=== PATIENT | female | born 1970 | race Two or more races ===

== ENCOUNTER 2016-12-17 23:52 | Emergency (ER) | payer MEDICAID ==
[~2016-12-17] VITALS: Ht 149.9 cm; Wt 65.3 kg
[2016-12-18 00:50] LABS: Basophils # (auto) 0 uL; Eosinophils # (auto) 0 uL; Eosinophils % (auto) 0.1 % (0.0-7.0); Hematocrit 36.8 % (36.0-46.0); Hemoglobin 12.6 g/dL (12.2-16.2); Lymphocytes # (auto) 1.2 uL; Lymphocytes % (auto) 8.2 % (10.0-50.0); Mean Corpuscular Hemoglobin 31.6 pg (28.0-32.0); Mean Corpuscular Hgb Conc. 34.3 g/dL (32.0-36.0); Mean Platelet Volume 7.8 fL (7.4-10.4); Monocytes # (auto) 0.8 uL; Monocytes % (auto) 5.4 % (0.0-12.0); Neutrophils # (auto) 12.6 uL; Neutrophils % (auto) 86.3 % (37.0-80.0); Platelet Count (auto) 317 10^3/uL (140-450); Red Cell Distribution Width 13.6 % (11.6-16.0); White Blood Cell 14.6 10^3/uL (4.4-10.8)
[2016-12-18 01:07] LABS: INR 0.95 (0.9-1.15); Partial Thromboplastin Time 28.2 sec (22.64-33.71); Prothrombin Time 10.3 sec (9.37-12.3)
[2016-12-18 01:16] LABS: Albumin 3.9 g/dL (3.4-5.0); Anion Gap 12 (5-15); Blood Urea Nitrogen 11 mg/dL (7-18); Calcium 8.5 mg/dL (8.5-10.1); Carbon Dioxide 24 mmol/L (21-32); Chloride 105 mmol/L (98-107); Glucose 125 mg/dL (74-106); Magnesium 2.1 mg/dL (1.6-2.6); Potassium 3.3 mmol/L (3.5-5.1); Sodium 141 mmol/L (136-145)
[2016-12-18 01:18] LABS: BUN/Creatinine Ratio 15.5; GFR African American 114 mL/min; GFR Non-African American 95 mL/min
[2016-12-18 02:04] LABS: Alkaline Phosphatase 69 U/L (45-117); Aspartate Aminotransferase 12 U/L (15-37); Bilirubin, Total 0.4 mg/dL (0.2-1.0); Total Protein 8.2 g/dL (6.4-8.2)
[2016-12-18 06:39] VITALS: BP 149/95
== END 2016-12-18 07:15 | disposition home or self-care (01) ==
LOC: ER 23:52
DX: K04.7 Periapical abscess without sinus (principal); N39.0 Urinary tract infection, site not specified; I10 Essential (primary) hypertension
CPT/HCPCS: 36415; 71010; 80053; 81002; 83605; 83735; 84484; 85025; 85610; 85730; 87040; 93005

== ENCOUNTER 2023-06-01 23:19 | Inpatient (IN) | payer MEDICAID ==
[~2023-06-01] VITALS: Ht 162.6 cm; Wt 76.4 kg
[2023-06-01 23:53] LABS: Basophils # (auto) 0.1 10 ^3/uL (0-0.2); Basophils % (auto) 0.8 % (0.0-2.0); Eosinophils # (auto) 0.1 10 ^3/uL (0-0.8); Eosinophils % (auto) 1.8 % (0.0-7.0); Hematocrit 37.2 % (36.0-46.0); Hemoglobin 12.7 g/dL (12.2-16.2); Lymphocytes # (auto) 2.9 10 ^3/uL (0.4-5.4); Mean Corpuscular Hemoglobin 31.4 pg (28.0-32.0); Mean Corpuscular Volume 92.1 fL (80.0-100.0); Monocytes # (auto) 0.7 10 ^3/uL (0-1.3); Monocytes % (auto) 8.8 % (0.0-12.0); Neutrophils # (auto) 3.8 10 ^3/uL (1.6-8.6); Neutrophils % (auto) 50.6 % (37.0-80.0); Red Blood Cells 4.03 10^6/uL (4.0-5.20); Red Cell Distribution Width 12.7 % (11.8-14.3); White Blood Cell 7.5 10^3/uL (4.4-10.8)
[2023-06-02 00:12] LABS: INR 0.98 (0.9-1.15); Partial Thromboplastin Time 27.2 SEC (24.5-34.5); Prothrombin Time 10.3 sec (9.3-11.8)
[2023-06-02 00:15] LABS: Alanine Aminotransferase 38 U/L (7-40); Alkaline Phosphatase 78 U/L (46-116); Anion Gap 9 (5-15); Aspartate Aminotransferase 24 U/L (13-40); BUN/Creatinine Ratio 12.4 (10.0-20.0); Bilirubin, Total 0.3 mg/dL (0.2-1.0); Blood Urea Nitrogen 11 mg/dL (9-23); Calcium 10.1 mg/dL (8.7-10.4); Carbon Dioxide 24 mmol/L (20-30); Chloride 107 mmol/L (98-107); Glucose 130 mg/dL (74-106); Potassium 3.2 mmol/L (3.5-5.1); Sodium 140 mmol/L (136-145); Total Protein 7.9 g/dL (5.7-8.2)
[2023-06-02] MEDS ORDERED: ALBUTEROL MEDNEB 2.5 mg/3ml NEB NEB ONE (02:15)
[2023-06-02] MEDS ORDERED: DexAMETHasone SOD PHOS 10MG/1ML VIAL INJ IV ONE (02:15)
[2023-06-02] MEDS ORDERED: LORazepam 2MG/ML-1ML VIAL IV ONE (02:15)
[2023-06-02 03:09] VITALS: PULSE 99; RESP 14; O2SAT 96
[2023-06-02] MEDS ORDERED: IOHEXOL 350 MG/ML 100ML IJ ONE (04:17)
[2023-06-02] MEDS ORDERED: POTASSIUM CHL 20 Meq TABLET PO ONE ×2 (09:15)
[2023-06-02] MEDS ORDERED: ONDANSETRON HCL 4 MG/2 ML VIAL IV PRN (09:45)
[2023-06-02] MEDS: ENOXAPARIN SOD 40 MG/0.4 ML SYRINGE SC SCH (10:07)
[2023-06-02 10:29] LABS: Triglycerides 96 mg/dL (< 150)
[2023-06-02 10:30] LABS: LDL Cholesterol 97 mg/dL (< 100)
[2023-06-02 10:31] LABS: Cholesterol 161 mg/dL (< 200); HDL Cholesterol 53 mg/dL (40-59)
[2023-06-02 16:59] LABS: Urine Bacteria NONE SEEN /hpf (None Seen); Urine Blood 2+ /uL (Negative); Urine Clarity HAZY (Clear); Urine Color Yellow (Yellow); Urine Protein, UAD TRACE (Negative); Urine Specific Gravity 1.025 (1.001-1.035); Urine Urobilinogen Normal (Negative); Urine WBC 81 /hpf (0 - 5)
[2023-06-02 17:14] LABS: Amphetamine Screen, Urine Neg (NEGATIVE); Barbiturate Scree,Urine Neg (NEGATIVE); Benzodiazephine Screen, Urine Neg (NEGATIVE); Cocaine Screen, Urine Neg (NEGATIVE)
[2023-06-02 17:15] LABS: Cannabinoid Screen, Urine Neg (NEGATIVE); Opiate Scree,Urine Pos (NEGATIVE); Phencyclidine Screen, Urine Neg (NEGATIVE)
[2023-06-02] MEDS: cefTRIAXone 1GM/50ML D5W 50 ML IV SCH (19:14)
[2023-06-02] MEDS: ACETAMINOPHEN 325 MG TAB PO PRN (20:13)
[2023-06-02] MEDS ORDERED: ATORVASTATIN 20 MG TAB PO SCH (22:00)
[2023-06-02] MEDS ORDERED: LEVO75TA6 PO (23:08)
[2023-06-02] MEDS ORDERED: ATO40T PO (23:08)
[2023-06-03 05:00] VITALS: BP 98/60; PULSE 98; RESP 20; TEMP 98.1; O2SAT 94
[2023-06-03 07:10] LABS: Basophils # (auto) 0 10 ^3/uL (0-0.2); Basophils % (auto) 0.3 % (0.0-2.0); Eosinophils # (auto) 0 10 ^3/uL (0-0.8); Eosinophils % (auto) 0.3 % (0.0-7.0); Hematocrit 35.6 % (36.0-46.0); Hemoglobin 11.8 g/dL (12.2-16.2); Lymphocytes # (auto) 2.1 10 ^3/uL (0.4-5.4); Lymphocytes % (auto) 19.4 % (10.0-50.0); Mean Corpuscular Hemoglobin 31.2 pg (28.0-32.0); Mean Corpuscular Hgb Conc. 33.2 g/dL (32.0-36.0); Mean Corpuscular Volume 94.2 fL (80.0-100.0); Monocytes # (auto) 1.1 10 ^3/uL (0-1.3); Monocytes % (auto) 10.3 % (0.0-12.0); Neutrophils # (auto) 7.5 10 ^3/uL (1.6-8.6); Neutrophils % (auto) 69.7 % (37.0-80.0); Nucleated Red Blood Cells % 0.1 %; Red Blood Cells 3.78 10^6/uL (4.0-5.20); Red Cell Distribution Width 13.6 % (11.8-14.3); White Blood Cell 10.7 10^3/uL (4.4-10.8)
[2023-06-03 07:30] LABS: Anion Gap 8 (5-15); Carbon Dioxide 24 mmol/L (20-30); Chloride 110 mmol/L (98-107); Potassium 3.9 mmol/L (3.5-5.1); Sodium 142 mmol/L (136-145)
[2023-06-03 07:31] LABS: Calcium 9.2 mg/dL (8.7-10.4)
[2023-06-03 07:36] LABS: BUN/Creatinine Ratio 22.2 (10.0-20.0); Blood Urea Nitrogen 18 mg/dL (9-23); Glucose 112 mg/dL (74-106)
[2023-06-03] MEDS: ENOXAPARIN SOD 40 MG/0.4 ML SYRINGE SC SCH (08:41)
[2023-06-03] MEDS: cefTRIAXone 1GM/50ML D5W 50 ML IV SCH (08:42)
[2023-06-03 09:11] VITALS: BP 107/61; PULSE 65; RESP 20; TEMP 98.2; O2SAT 94
[2023-06-03] MEDS ORDERED: ASPirin 81 mg TAB PO SCH (10:00)
[2023-06-03] MEDS: ACETAMINOPHEN 325 MG TAB PO PRN (12:00)
[2023-06-03 12:42] VITALS: BP 112/63; PULSE 77; RESP 20; TEMP 98.3; O2SAT 93
[2023-06-03 16:39] VITALS: BP 116/70; PULSE 91; RESP 20; TEMP 99.5; O2SAT 97
[2023-06-03] MEDS ORDERED: CEPH250C PO (17:54)
[2023-06-04 08:41] LABS: Hepatitis B Surface Antigen Negative (Negative)
[2023-06-04 09:03] LABS: Hepatitis C Antibody Negative (Negative)
== END 2023-06-03 18:41 | disposition home or self-care (01) | DRG 133 ==
LOC: ER 23:19 → EDBD 23:19 → OVERFLOW 06-02 09:35 → WEST WING 06-02 22:00
PROVIDERS: ADMIT Internal Medicine
DX: J96.00 Acute respiratory failure, unspecified whether with hypoxia or hypercapnia (principal); E03.9 Hypothyroidism, unspecified; E66.9 Obesity, unspecified; Z68.28 Body mass index [BMI] 28.0-28.9, adult; E78.5 Hyperlipidemia, unspecified; E87.6 Hypokalemia; R73.03 Prediabetes; N39.0 Urinary tract infection, site not specified; H54.7 Unspecified visual loss; I10 Essential (primary) hypertension; J98.01 Acute bronchospasm; Z86.73 Personal history of transient ischemic attack (TIA), and cerebral infarction without residual deficits; Z82.49 Family history of ischemic heart disease and other diseases of the circulatory system; Z80.8 Family history of malignant neoplasm of other organs or systems
CPT/HCPCS: 36415; 71045; 71275; 78452; 78582; 80048; 80053; 80061; 80307; 81001; 83036; 83880; 84443; 84484; 85025; 85379; 85610; 85730; 86803; 87081; 87086; 87340; 93005; 93017; 93306; 94640; G0378; J0696; J1100